=== PATIENT | female | born 1980 | race Caucasian/White ===

== ENCOUNTER 2020-12-27 17:49 | Emergency (ER) | payer BC ==
[2020-12-27 17:55] VITALS: TEMP 98.9
--- NOTE | 2020-12-27 18:17 | XR ---
EXAMINATION TYPE: XR chest 2V DATE OF EXAM: 12/27/2020 COMPARISON: NONE HISTORY: Cough. Short of breath TECHNIQUE: 2 views FINDINGS: Heart and mediastinum are normal. Lungs are clear of infiltrate. There is no pleural effusi on. There are no hilar masses. IMPRESSION: Normal chest.
--- NOTE | 2020-12-27 19:07 | ED ---
SOB HPI - General Chief Complaint: Shortness of Breath Stated Complaint: Covid+/sob/chest pain Time Seen by Provider: 12/27/20 18:43 Source: patient Mode of arrival: ambulatory - History of Present Illness Initial Comments: 40-year-old female presenting today for chief complaint of covid positive with shortness of breath, body aches and chest tightness. Patient states that since her diagnosis of covid she has had cough, chest tightness when she takes a deep breath or coughs. Patient states her dyspne has worsened since the diagnosis. She denies hemoptysis leg swelling calf pain. She denies abdominal pain stabbing chest pain or sharp pains with deep inspiration. Patient denies hx of DVT/PE, recent surgeries, injuries or immobilization. Patient denies abdominal pain. Denies jaw or arm pain. patient has no additional complaints or concerns. Upon arrival patient appears well nontoxic in no respiratory distress. oxygenating well on RA. - Related Data Previous Rx's Medication Instructions Recorded Albuterol Inhaler [Ventolin Hfa 1 puff INHALATION Q6H PRN 30 Days 12/27/20 Inhaler] #60 puff Allergies Allergy/AdvReac Type Severity Reaction Status Date / Time methylprednisolone Allergy hot/red- Verified 12/27/20 17:55 [From Solu-Medrol] with all steroids Penicillins Allergy Unknown Verified 06/26/14 15:11 Sulfa (Sulfonamide Allergy Unknown Verified 06/26/14 15:11 Antibiotics) Review of Systems ROS Statement: Those systems with pertinent positive or pertinent negative responses have been documented in the HPI. ROS Other: All systems not noted in ROS Statement are negative. Past Medical History Past Medical History: No Reported History Additional Past Medical History / Comment(s): covid 19, History of Any Multi-Drug Resistant Organisms: None Reported Past Surgical History: Hernia Repair Past Psychological History: No Psychological Hx Reported Smoking Status: Vaper Past Alcohol Use History: None Reported Past Drug Use History: None Reported General Exam - General Exam Comments Initial Comments: General: The patient is awake and alert, in no distress Eye: +3 mm pupils are equal, round and reactive to light, extra-ocular movements are intact. No nystagmus. There is normal conjunctiva bilaterally. No signs of icterus. Ears, nose, mouth and throat: There are moist mucous membranes and no oral lesions. Neck: The neck is supple, there is no tenderness or JVD. Cardiovascular: There is a regular rate and rhythm. No murmur, rub or gallop is appreciated. Respiratory: Lungs are clear to auscultation, respirations are non-labored, breath sounds are equal. No wheezes, stridor, rales, or rhonchi. Gastrointestinal: Soft, non-distended, non-tender abdomen without masses or organomegaly noted. There is no rebound or guarding present. Musculoskeletal: Normal ROM, no tenderness. Strength 5/5. Sensation intact. Radial and DP pulses equal bilaterally 2+. Neurological: A&O x 3. CN II-XII intact grossly, There are no obvious motor or sensory deficits. Coordination appears grossly intact. Speech is normal. Skin: Skin is warm and dry and no rashes or lesions are noted. No calf pain or LE edema. Psychiatric: Cooperative, appropriate mood & affect, normal judgment. Course Vital Signs 12/27/20 12/27/20 12/27/20 17:52 19:37 19:43 Temperature 98.9 F Pulse Rate 90 84 Respiratory 20 19 18 Rate Blood Pressure 119/73 138/71 O2 Sat by Pulse 99 Oximetry Medical Decision Making - Medical Decision Making CXR clear. lungs clear. no hypoxia. pt not tachycardic. she appears nontoxic. no pleuritic sharp pain. no calf pain/swelling. patient denies hemopytsis. patient appears well. EKG no acute changes. patient case discussed with Dr. Hardy who reviewed EKG she is agreeable to care plan of discharge with pcp f/u, return parameters (recommendation of home oxygen monitoring), and symptomatic treatemtn with oTC agents such as tylenol. patient agreeable discharged appearing well. Disposition Clinical Impression: Dyspnea, COVID-19 Disposition: HOME SELF-CARE Condition: Good Instructions (If sedation given, give patient instructions): Coronavirus Disease 2019 (COVID-19) Additional Instructions: Please use medication as discussed. Please follow-up with family doctor in the next 2 days. Please return to emergency room if the symptoms increase or worsen or for any other concerns. Prescriptions: Albuterol Inhaler [Ventolin Hfa Inhaler] 1 puff INHALATION Q6H PRN 30 Days #60 puff PRN Reason: Wheezing Is patient prescribed a controlled substance at d/c from ED?: No Referrals: Alka Smith NPC [Primary Care Provider] - 1-2 days Time of Disposition: 19:21
[2020-12-27 19:44] VITALS: BP 138/71; PULSE 84; RESP 18
== END 2020-12-27 19:47 | disposition home or self-care (01) ==
LOC: EC 17:49
DX: U07.1 COVID-19 (principal); R06.00 Dyspnea, unspecified
CPT/HCPCS: 71046; 93005